=== PATIENT | female | born 1995 | race Caucasian/White ===

== ENCOUNTER → 2021-01-28 | Outpatient (CLI) | payer BC | LOC: KOH-I 16:14 | DX: M25.531 Pain in right wrist (principal) | CPT/HCPCS: 73110 ==

== ENCOUNTER → 2021-05-10 | Outpatient (CLI) | payer BC | LOC: LAB 13:43 | DX: L70.9 Acne, unspecified (principal) | CPT/HCPCS: 36415; 80076; 82465; 84478; 84703 ==

== ENCOUNTER → 2021-07-29 | Outpatient (CLI) | payer BC ==
[~2021-07-29] MED LIST: CELEBREX100 MG PO; CYCLOBENZAPRINE10 MG PO
== END ==
LOC: LAB 11:39
DX: R94.6 Abnormal results of thyroid function studies (principal)
CPT/HCPCS: 36415; 84439; 84443

== ENCOUNTER 2021-08-01 20:29 | Emergency (ER) | payer OTHER ==
[2021-08-01] MEDS ORDERED: CYCLOBENZAPRINE10 MG PO (22:19)
[2021-08-01] MEDS ORDERED: CELEBREX100 MG PO (22:19)
== END 2021-08-01 22:35 | disposition home or self-care (01) ==
LOC: ER1 20:29
DX: S09.90XA Unspecified injury of head, initial encounter (principal); S16.1XXA Strain of muscle, fascia and tendon at neck level, initial encounter; S80.02XA Contusion of left knee, initial encounter; S80.01XA Contusion of right knee, initial encounter; F17.290 Nicotine dependence, other tobacco product, uncomplicated; V49.49XA Driver injured in collision with other motor vehicles in traffic accident, initial encounter; Y92.410 Unspecified street and highway as the place of occurrence of the external cause
CPT/HCPCS: 70450; 72125; 73560; 99284